=== PATIENT | male | born 1975 | race Caucasian/White ===

== ENCOUNTER 2018-04-21 06:55 | Day surgery (SDC) | payer OTHER ==
[~2018-04-21] VITALS: Ht 167.6 cm; Wt 79.5 kg
[2018-04-21 07:30] VITALS: BP 117/75; PULSE 56; TEMP 97.8
[2018-04-21] MEDS ORDERED: ZYRTEC 10MG10 MG PO (07:38)
[2018-04-21] MEDS ORDERED: PRILOSEC 20MG20 MG PO (07:38)
[2018-04-21] MEDS ORDERED: ADVIL LIQUI-GE200 MG PO (07:39)
[2018-04-21 08:52] VITALS: BP 118/79; PULSE 59; TEMP 97.8
[2018-04-21 09:07] VITALS: BP 108/76; PULSE 50
[2018-04-21 09:21] VITALS: BP 101/70; PULSE 58
[2018-04-21 13:34] VITALS: BP 119/84; PULSE 67
== END 2018-04-21 09:40 | disposition home or self-care (01) ==
LOC: SDCO 06:55
DX: K21.0 Gastro-esophageal reflux disease with esophagitis (principal); K22.70 Barrett's esophagus without dysplasia; J45.909 Unspecified asthma, uncomplicated; E78.00 Pure hypercholesterolemia, unspecified; Z87.891 Personal history of nicotine dependence
CPT/HCPCS: J2250; J3010; J7030